=== PATIENT | female | born 1980 | race Caucasian/White ===

== ENCOUNTER 2018-08-02 13:41 | Emergency (ER) | payer OTHER, MEDICAID ==
[2018-08-02 13:52] VITALS: BP 142/96
--- NOTE | 2018-08-02 14:32 | EDPHY ---
General Time Seen by Provider: 08/02/18 14:05 Narrative: CLINICAL IMPRESSION: Left 3rd PIP tendinitis ASSESSMENT/PLAN: A 37-year-old female presents to the emergency department with atraumatic left 3rd PIP joint pain. Patient has no open wounds, erythema, warmth or clinical suggestion of tenosynovitis, septic joint, osteoarthritis. X-rays negative for acute fracture. Distal neurovascular exam intact. Suspect ligamentous strain. Aluminum finger splint provided, orthopedic referral given, warning signs return to ED sooner alignment discharge. DIFFERENTIAL DX: Differential includes but not limited to acute fracture, strain/sprain, joint dislocation, soft tissue contusion ED PROCEDURES: Procedure: Splint placement. A aluminum finger splint was applied to the left 3rd finger by radiographer technologist, supervised by myself. After application of the splint I returned and re- examined the patient. The splint was adequately immobilizing the joint and distal to the splint the patient's circulation and sensation was intact. ED COURSE: X-ray results discussed with the patient, no acute findings CHIEF COMPLAINT: Left 3rd finger pain HPI: 37-year-old female presents to the emergency department left 3rd finger pain. Patient reports no trauma. She was doing a lot of dishes yesterday. No open wounds reported. No prior finger injury or surgery. No reported numbness or loss of sensation. She is having trouble bending the finger due to swelling. No redness or warmth. PAST MEDICAL HISTORY: None reported, see nurse triage note Pertinent Past Surgical History: None reported Social History: Otherwise healthy, right-hand dominant REVIEW OF SYSTEMS: All other systems negative Constitutional: No fever, no chills Musculoskeletal: No deformity, + joint pain Skin: No rashes, color change or open wounds. Neurological: No sensory loss or weakness. PHYSICAL EXAM: General Appearance: Alert, oriented, appropriate for age, cooperative, NAD, well hydrated, non-toxic appearing, VSS, no hypoxia. Neurological: Alert and oriented x 3, normal sensation and strength of extremities Skin: Warm, dry, no rashes, no nodules on palpation. Musculoskeletal: Mild swelling noted to left 3rd PIP joint. No open wound. No overlying erythema, warmth. Neurovascular exam intact. MEDICAL DECISION MAKING: Patient was seen independently. Secondary supervising physician at time of evaluation was Dr. Levine . Diagnosis: Left 3rd finger PIP tendinitis. New, requires workup Summary: See assessment and plan for summary of ED visit Independent visualization of images, tracing, or specimens yes. Patient Progress: Improved. - History Smoking Status: Former smoker - Objective Vital Signs: Initial Vital Signs Temperature (C) 36.7 C 08/02/18 13:49 Heart Rate 79 08/02/18 13:49 Respiratory Rate 18 08/02/18 13:49 Blood Pressure 142/96 H 08/02/18 13:49 O2 Sat (%) 100 08/02/18 13:49 O2 Delivery Mode Room Air Allergies/Adverse Reactions: acetaminophen [From Vicodin] Allergy (Verified 08/02/18 13:49) hydrocodone [From Vicodin] Allergy (Verified 08/02/18 13:49) ketorolac [From Toradol] Allergy (Verified 08/02/18 13:49) Home Medications: Medication Instructions Recorded NK [No Known Home Meds] 02/06/18 Departure - Departure Disposition: Home, Routine, Self-Care Clinical Impression: Finger pain Condition: Good Instructions: Finger Sprain (ED) Additional Instructions: DISCHARGE INSTRUCTIONS FROM YOUR DOCTOR Thank you for visiting our emergency department today. Please keep in mind that discharge from the emergency department does not mean that there is nothing wrong - it simply means that we have not identified an emergency condition that requires further evaluation or treatment in the hospital. You should always plan to follow up with primary care for re-evaluation of your condition in the next 2-3 days. If you have been referred to a specialist, please call as soon as possible (today or tomorrow) to schedule your follow up appointment at the appropriate time. [ X-RAYS OF HER FINGER SHOWED NO EVIDENCE OF FRACTURE. AN ALUMINUM FINGER SPLINT WAS PLACED TODAY. PLEASE USE THIS FOR COMFORT. A WORK NOTE WAS GIVEN TO LET YOU'RE EMPLOY ARE NO YOU'RE HERE. ORTHOPEDIC REFERRAL GIVEN IF PAIN PERSISTS. RETURN TO ED FOR WORSENING PAIN OR ANY OTHER CONCERNS.] People present with illnesses and injuries in different ways, and it is always possible that we have missed something. You may always return for re-evaluation if symptoms worsen or if they are not improving or if you develop new/different symptoms. Again, thank you for choosing our emergency department. We hope that you feel better. Referrals: NONE *PRIMARY CARE P,. [Primary Care Provider] - As per Instructions Jesus Altamirano MD [Medical Doctor] - As per Instructions Stand Alone Forms: Work Excuse
== END 2018-08-02 14:35 | disposition home or self-care (01) ==
DX: M65.842 Other synovitis and tenosynovitis, left hand (principal); Z87.891 Personal history of nicotine dependence
CPT/HCPCS: 73140; 99283; L3925

== ENCOUNTER 2018-08-16 12:07 | Emergency (ER) | payer OTHER, MEDICAID ==
--- NOTE | 2018-08-16 12:21 | EDPHY ---
H & P Stated Complaint: wheezing/URI Time Seen by Provider: 08/16/18 12:21 - Medical/Surgical History Hx Asthma: No Hx Chronic Respiratory Disease: No Hx Diabetes: No Hx Cardiac Disease: No Hx Renal Disease: No Hx Cirrhosis: No Hx Alcoholism: No Hx HIV/AIDS: No Hx Splenectomy or Spleen Trauma: No Other PMH: lap param, , - Social History Smoking Status: Former smoker Constitutional: Initial Vital Signs Temperature (C) 36.7 C 08/16/18 12:13 Heart Rate 99 08/16/18 12:13 Respiratory Rate 16 08/16/18 12:13 Blood Pressure 138/103 H 08/16/18 12:13 O2 Sat (%) 99 08/16/18 12:13 O2 Delivery Mode Room Air Allergies/Adverse Reactions: acetaminophen [From Vicodin] Allergy (Verified 08/16/18 12:13) hydrocodone [From Vicodin] Allergy (Verified 08/16/18 12:13) ketorolac [From Toradol] Allergy (Verified 08/16/18 12:13) Home Medications: Medication Instructions Recorded Albuterol [Proventil Inhaler] 1 - 2 puffs IH Q4 #1 mdi 08/16/18 predniSONE 40 mg PO DAILY #10 tab 08/16/18 Medical Decision Making - Diagnostics Imaging: Discussed imaging studies w/ bilingual call center representative Radiologist, I viewed and interpreted images myself ED Course/Re-evaluation: CHIEF COMPLAINT: Wheezing and lost voice HISTORY OF PRESENT ILLNESS: 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 She has had a flu vaccine. She is describing some upper respiratory type of illness for couple of days which is causing her to lose her voice and causing her to wheeze a bit especially in the cold weather. She does have a history of asthma. She denies any respiratory distress. She wants to make sure she does not have a pneumonia or anything else that needs treatment. She denies fevers or chills. She denies body aches. She denies sore throat. She denies nausea vomiting or diarrhea. REVIEW OF SYSTEMS: A comprehensive 10 system review of systems is otherwise negative aside from elements mentioned in the history of present illness and medical decision making. PHYSICAL EXAM: HR, BP, O2 Sat, RR. Temp noted General Appearance: Alert, well hydrated, appropriate, and non-toxic appearing. Head: Atraumatic without scalp tenderness or obvious injury Eyes: Pupils equal, round, reactive to light and accommodation, EOMI, no trauma , no injection. Ears: Clear bilaterally, no perforation, normal landmarks Nose: Atraumatic, no rhinorrhea, clear. Throat: There is no erythema or exudates, no lesions, normal tonsils, mucus membranes moist. Neck: Supple, 2+ carotid upstroke, nontender, no lymphadenopathy. Respiratory: No retractions, no distress, a few coarse wheezes throughout all peres, and no accessory muscle use. Lungs are generally clear to auscultation bilaterally. Cardiovascular: Regular rate and rhythm, no murmurs, rubs, or gallops. Bilateral carotid, radial, dorsalis pedis, and posterior tibial pulses intact. Good capillary refill all extremities. Gastrointestinal: Abdomen is soft, nontender, non-distended, no masses, no rebound, no guarding, no peritoneal signs. Musculoskeletal: Normal active ROM of all extremities, atraumatic. Neurological: Alert, appropriate, and interactive. The patient has normal DTRs and non-focal cranial nerves, motor, sensory, and cerebellar exam. Skin: No rashes, good turgor, no nodules on palpation. Past medical history: Asthma Past surgical history: Noncontributory Family history: Noncontributory Social history: , employed, does not use tobacco drugs or alcohol DIAGNOSTICS/PROCEDURES/CRITICAL CARE TIME: Study: PA and Lateral Chest X-ray Indication: Wheezing Results: After viewing the images myself on the PACS system. My interpretation of the images is: acute bronchitis. The radiologist interpretation is pending at the time of this dictation. I have discussed the above x-rays with the radiologist. DIFFERENTIAL DIAGNOSIS: The differential diagnosis for the patient's shortness of breath included but was not limited to pneumonia, myocardial infarction, acute mountain sickness, high altitude pulmonary edema, congestive heart failure, and pulmonary embolus. MEDICAL DECISION MAKING: This patient is not in acute distress. This patient is not hypoxemic. I am performing a chest x-ray, duo nebulizer treatment, influenza swab. I will also give her some steroids. 1331: I consulted with the radiologist regarding patient's chest x-ray. The patient has acute bronchitis, no signs of pneumonia. Patient is also negative for RSV and flu. 1352: Reassessed patient and discussed imaging and laboratory findings. I have advised her to use an inhaler and take Prednisone as prescribed. Return precautions provided; patient is comfortable with this plan. - Data Points Laboratory Results: 08/16/18 12:30 Nasal Influenza A PCR NEGATIVE FOR FLU A (NEGATIVE) Nasal Influenza B PCR NEGATIVE FOR FLU B (NEGATIVE) RSV (PCR) NEGATIVE FOR RSV (NEGATIVE) Medications Given: Discontinued Medications Albuterol/Ipratropium (Duoneb) 3 ml IH EDNOW ONE Stop: 08/16/18 12:25 Last Admin: 08/16/18 12:31 Dose: 3 ml Prednisone (Prednisone) 60 mg PO EDNOW ONE Stop: 08/16/18 12:29 Last Admin: 08/16/18 12:34 Dose: 60 mg Departure - Departure Disposition: Home, Routine, Self-Care Clinical Impression: Shortness of breath Acute bronchitis Qualifiers: Bronchitis organism: other organism Qualified Code(s): J20.8 - Acute bronchitis due to other specified organisms Condition: Good Instructions: Acute Bronchitis (ED), Shortness of Breath (ED) Additional Instructions: 1. Use the inhaler as prescribed. Take Prednisone as prescribed. 2. Follow-up with your primary doctor within 72 hours. 3. Return to the Emergency Department for fever, chest pain, shortness of breath , increasing pain or other worsening of condition. Referrals: NE[facility]UR[facility] [Other] - As per Instructions Prescriptions: Albuterol [Proventil Inhaler] 1 - 2 puffs IH Q4 #1 mdi predniSONE 40 mg PO DAILY #10 tab
[2018-08-16] MEDS ORDERED: IPRATROPIUM/ALBUTEROL 3 ML DEYVIAL IH ONE (12:24)
[2018-08-16] MEDS ORDERED: predniSONE 20 MG TAB PO ONE (12:28)
[2018-08-16] MEDS ORDERED: predniSONE 20 MG TAB ONE (12:37)
[2018-08-16 13:55] VITALS: BP 146/99
== END 2018-08-16 13:55 | disposition home or self-care (01) ==
DX: J20.8 Acute bronchitis due to other specified organisms (principal)
CPT/HCPCS: 71046; 99284; J7512

== ENCOUNTER 2018-12-15 11:08 | Emergency (ER) | payer OTHER, MEDICAID | END 2018-12-15 12:22 | disposition home or self-care (01) ==